=== PATIENT | female | born 1960 | race Caucasian/White ===

== ENCOUNTER → 2021-08-05 | Outpatient (CLI) | payer BC ==
--- NOTE | 2021-08-05 22:05 | CTL ---
EXAMINATION TYPE: CT Low Dose Lung DATE OF EXAM ORDERED: 08/05/2021 HISTORY: Lung cancer screening CT DLP: 101.[address] CTDI: 2.6 mGy Automated exposure control for dose reduction was used. SCREENING VISIT: Initial COMPARISON: Chest radiograph 07/12/2021, CT abdomen pelvis 06/04/2017. TECHNIQUE: Low dose computed tomography scan was performed through the chest at 1 mm thick sections a nd reconstructed images in multiple planes at 1 mm and [address] DIAGNOSTIC QUALITY: Satisfactory FINDINGS: LUNG NODULES: None. LUNGS: COPD: Severity: Minimal Fibrosis: Severity: None Lymph nodes: None Other findings: None RIGHT PLEURAL SPACE: Effusion: None Calcification: None Thickening: None Pneumothorax: None LEFT PLEURAL SPACE: Effusion: None Calcification: None Thickening: None Pneumothorax: None HEART: Heart Size: Normal Coronary Calcification: Three-vessel coronary artery atherosclerosis. Pericardial Effusion: None OTHER FINDINGS: Upper abdomen: None Bony thorax: Mild multilevel disc degeneration changes are present throughout the spine. There is no evidence for acute osseous pathology. Supraclavicular region: None Other: None IMPRESSION: No evidence for pulmonary nodules. CT LUNG RAD AND CT CHEST RECOMMENDATION: Lung-Rad 1 Negative: Continue annual screening with LDCT in 12 months. S Modifier (other clinically significant findings): S, moderate atherosclerosis of the coronary arter ies.
== END | disposition home or self-care (01) ==
LOC: RADCTMAIN 14:51
PROVIDERS: ATTEND Internal Medicine Critical Care Medicine
DX: Z12.2 Encounter for screening for malignant neoplasm of respiratory organs (principal); Z87.891 Personal history of nicotine dependence
CPT/HCPCS: 71271

== ENCOUNTER → 2021-09-08 | Outpatient (CLI) | payer BC ==
--- NOTE | 2021-09-09 01:50 | MR ---
EXAMINATION TYPE: MR cervical spine wo con DATE OF EXAM: 09/08/2021 COMPARISON: None HISTORY: Neck pain that radiates into left arm. Multiplanar multi echo imaging of the cervical spine without contrast. Cervical vertebra show mild straightening. There is some degenerative disc space narrowing at C5-6 an d C6-7. Facet joints are intact with no compression fracture. Brainstem is intact. There is no eviden ce of cervical paraspinal mass. There is a mild posterior left-sided disc bulge at C6-7 and slight ef facement of the cervical cord. There is impingement on the left side neural foramen. Cervical cord sh ows no edema. No compression fracture. Facet joints are intact. No evidence of focal bone destruction . Spinal canal measures 8.5 mm at C6-7 which is the narrowest point. IMPRESSION: There is posterior left-sided disc bulging and uncovertebral spurring at C6-7 with impingement on the neural foramen which could be clinically significant in this patient with left-sided arm pain. No ce rvical spinal stenosis.
== END | disposition home or self-care (01) ==
LOC: RADMRIMAIN 14:46
PROVIDERS: ATTEND Nurse Practitioner Family
DX: M50.123 Cervical disc disorder at C6-C7 level with radiculopathy (principal)
CPT/HCPCS: 72141

== ENCOUNTER 2022-12-10 11:53 | Emergency (ER) | payer BC ==
[2022-12-10 12:04] VITALS: RESP 18
[2022-12-10] MEDS ORDERED: SODIUM CHLORIDE 0.9% 1,000 ML IV STA (12:35)
[2022-12-10] MEDS ORDERED: KETOROLAC 15 MG/ML 1 ML VIAL IVP STA (12:35)
--- NOTE | 2022-12-10 12:37 | ED ---
Abdominal Pain HPI - General Chief Complaint: Abdominal Pain Stated Complaint: Abd pain Time Seen by Provider: 12/10/22 12:09 Source: patient Mode of arrival: ambulatory Limitations: no limitations - History of Present Illness Initial Comments: 62-year-old female with past medical history significant for colitis and IBS presents to the ED with a chief complaint of abdominal pain. Patient states 2 days ago started to feel crampy, intermittent lower abdominal pain. States since then, pain has started to become more constant and worsened in severity. States yesterday, started to experience diarrhea ongoing until today. Associated frequency and urgency however denies pain with urination or hematuria. No blood in the stool. No nausea, vomiting, denies fever. No other complaints. - Related Data Home Medications Medication Instructions Recorded Confirmed Ibuprofen [Motrin] 800 mg PO TID PRN 07/25/16 10/14/20 Lisinopril-Hctz 10-12.5 mg 1 tab PO DAILY 10/14/20 10/14/20 [Zestoretic 10-12.5] Atorvastatin Calcium [Lipitor] 10 mg PO DAILY 10/20/20 10/20/20 Previous Rx's Medication Instructions Recorded HYDROcodone/APAP 7.5-325MG [[place] 1 each PO Q6HR PRN #28 tab 10/20/20 7.5] Allergies Allergy/AdvReac Type Severity Reaction Status Date / Time No Known Allergies Allergy Verified 01/25/21 09:32 Review of Systems ROS Statement: Those systems with pertinent positive or pertinent negative responses have been documented in the HPI. ROS Other: All systems not noted in ROS Statement are negative. Past Medical History Past Medical History: Hypertension, Osteoarthritis (OA), Pneumonia Additional Past Medical History / Comment(s): Degenerative disc disease, thoracic aortic aneurysm, lung nodule being monitored, liver lesion being monitored, L lung pneumonia-had chest tube. IBS, diverticulitis History of Any Multi-Drug Resistant Organisms: None Reported Past Surgical History: Hysterectomy, Orthopedic Surgery Additional Past Surgical History / Comment(s): L LUNG thoracentesis, R carpal tunnel release, R wrist cyst removed, R elbow tendon release Past Anesthesia/Blood Transfusion Reactions: No Reported Reaction Additional Past Anesthesia/Blood Transfusion Reaction / Comment(s): Pt states she received blood as a . Past Psychological History: No Psychological Hx Reported Smoking Status: Current every day smoker Past Alcohol Use History: None Reported Past Drug Use History: None Reported - Past Family History Mother Family Medical History: Cancer, Diabetes Mellitus Additional Family Medical History / Comment(s): Mother of lung cancer at the age of 67yrs. Father History Unknown: Yes Additional Family Medical History / Comment(s): Father the patient has no contact with him. Sister(s) Additional Family Medical History / Comment(s): Stephania has 3 sisters and all have GI problems. One has been diagnosed with diverticulitis. one sister of bone cancer General Exam Limitations: no limitations General appearance: alert, in no apparent distress Eye exam: Present: normal appearance Neck exam: Present: normal inspection Respiratory exam: Present: normal lung sounds bilaterally Cardiovascular Exam: Present: regular rate, normal rhythm GI/Abdominal exam: Present: soft, tenderness (Tenderness to palpation of the left lower quadrant and suprapubic region. No rebound guarding or rigidity.) Extremities exam: Present: normal inspection Neurological exam: Present: alert, oriented X3 Skin exam: Present: warm, dry Course Vital Signs 12/10/22 12:00 Temperature 97.7 F Pulse Rate 95 Respiratory 18 Rate Blood Pressure 120/84 O2 Sat by Pulse 99 Oximetry Medical Decision Making - Medical Decision Making Was pt. sent in by a medical professional or institution (, PA, LOOSE [employer] P[employer]ER, urgent care, hospital, or halfway...) When possible be specific @ -No Did you speak to anyone other than the patient for history (EMS, parent, family, police, friend...)? What history was obtained from this source @ -No Did you review nursing and triage notes (agree or disagree)? Why? @ -I reviewed and agree with nursing and triage notes Were old charts reviewed (outside hosp., previous admission, EMS record, old EKG, old radiological studies, urgent care reports/EKG's, halfway records)? Report findings @ -No old charts were reviewed Differential Diagnosis (chest pain, altered mental status, abdominal pain women, abdominal pain men, vaginal bleeding, weakness, fever, dyspnea, syncope, headache, dizziness, GI bleed, back pain, seizure, CVA, palpatations, mental health, musculoskeletal)? @ -Differential Abdominal Pain Women: Appendicitis, Cholecystitis, diverticulosis, ischemic bowel, pancreatitis, hepatitis, UTI, gastroenteritis, AAA, incarcerated hernia, bowel obstruction, constipation, inflammatory bowel, hepatitis, peptic ulcer disease, splenic infarction, perforated viscus, vulvitis, ovarian torsion, PID, kidney stone, placenta abruption, this is not meant to be an all-inclusive list EKG interpreted by me (3pts min.). @ -As above X-rays interpreted by me (1pt min.). @ -None done CT interpreted by me (1pt min.). @ -CT abdomen and pelvis showed colitis/diverticulitis of the sigmoid colon without evidence of fluid collection or free air. U/S interpreted by me (1pt. min.). @ -None done What testing was considered but not performed or refused? (CT, X-rays, U/S, labs)? Why? @ -None What meds were considered but not given or refused? Why? @ -None Did you discuss the management of the patient with other professionals (professionals i.e. , PA, LOOSE [employer] P[employer]ER, lab, RT, psych nurse, healthcare social worker, pottery decoration designer, teacher, preventive medicine officer, classification case manager)? Give summary @ -No Was smoking cessation discussed for >3mins.? @ -No Was critical care preformed (if so, how long)? @ -No Were there social determinants of health that impacted care today? How? ( Homelessness, low income, unemployed, alcoholism, drug addiction, transportation, low edu. Level, literacy, decrease access to med. care, shelter, rehab)? @ -No Was there de-escalation of care discussed even if they declined (Discuss DNR or withdrawal of care, Hospice)? DNR status @ -No What co-morbidities impacted this encounter? (DM, HTN, Smoking, COPD, CAD, Cancer, CVA, ARF, Chemo, Hep., AIDS, mental health diagnosis, sleep apnea, morbid obesity)? @ -IBS Was patient admitted / discharged? Hospital course, mention meds given and route, prescriptions, significant lab abnormalities, going to OR and other pertinent info. @ -Discharged. Laboratory studies significant for an elevated white count at 13.6. , Laboratory studies unremarkable. CT of the abdomen pelvis shows evidence of diverticulitis/colitis however no free air or fluid collection. At this time, patient is in stable condition. Vital signs stable, afebrile. At this time patient would rather outpatient therapy for her diverticulitis/colitis. Patient discharged home in stable condition. Discussed return precautions with patient who verbalizes agreement. Undiagnosed new problem with uncertain prognosis? @ -No Drug Therapy requiring intensive monitoring for toxicity (Heparin, Nitro, Insulin, Cardizem)? @ -No Were any procedures done? @ -No Diagnosis/symptom? @ -Diverticulitis/Colitis Acute, or Chronic, or Acute on Chronic? @ -Acute Uncomplicated (without systemic symptoms) or Complicated (systemic symptoms)? @ -Uncomplicated Side effects of treatment? @ -No Exacerbation, Progression, or Severe Exacerbation? @ -No Poses a threat to life or bodily function? How? (Chest pain, [place], [place], pneumonia, PE, COPD, DKA, ARF, appy, cholecystitis, CVA, Diverticulitis, Homicidal, Suicidal, threat to staff... and all critical care pts) @ -No - Lab Data Result diagrams: 12/10/22 12:55 12/10/22 12:55 Lab Results 12/10/22 12/10/22 12/10/22 Range/Units 12:55 12:55 12:55 WBC 13.6 H (3.8-10.6) k/uL RBC 5.29 (3.80-5.40) m/uL Hgb 15.0 (11.4-16.0) gm/dL Hct 45.0 (34.0-46.0) % MCV 85.1 (80.0-100.0) fL MCH 28.3 (25.0-35.0) pg MCHC 33.3 (31.0-37.0) g/dL RDW 13.4 (11.5-15.5) % Plt Count 215 (150-450) k/uL MPV 7.8 Neutrophils % 76 % Lymphocytes % 18 % Monocytes % 4 % Eosinophils % 1 % Basophils % 0 % Neutrophils # 10.3 H (1.3-7.7) k/uL Lymphocytes # 2.4 (1.0-4.8) k/uL Monocytes # 0.6 (0-1.0) k/uL Eosinophils # 0.2 (0-0.7) k/uL Basophils # 0.0 (0-0.2) k/uL Sodium (137-145) mmol/L Potassium (3.5-5.1) mmol/L Chloride (98-107) mmol/L Carbon Dioxide (22-30) mmol/L Anion Gap mmol/L BUN (7-17) mg/dL Creatinine (0.52-1.04) mg/dL Est GFR (CKD-EPI)AfAm (>60 ml/min/1.73 sqM) Est GFR (CKD-EPI)NonAf (>60 ml/min/1.73 sqM) Glucose (74-99) mg/dL Plasma Lactic Acid Fareed (0.7-2.0) mmol/L Calcium (8.4-10.2) mg/dL Total Bilirubin (0.2-1.3) mg/dL AST (14-36) U/L ALT (4-34) U/L Alkaline Phosphatase (38-126) U/L Troponin I (0.000-0.034) ng/mL Total Protein (6.3-8.2) g/dL Albumin (3.5-5.0) g/dL Amylase (30-110) U/L Lipase (23-300) U/L Urine Color Yellow Urine Appearance Clear (Clear) Urine pH 6.0 (5.0-8.0) Ur Specific [place] 1.030 (1.001-1.035) Urine Protein Negative (Negative) Urine Glucose (UA) Negative (Negative) Urine Ketones Negative (Negative) Urine Blood Trace H (Negative) Urine Nitrite Negative (Negative) Urine Bilirubin Negative (Negative) Urine Urobilinogen <2.0 (<2.0) mg/dL Ur Leukocyte Esterase Negative (Negative) Urine RBC 1 (0-5) /hpf Urine WBC 1 (0-5) /hpf Ur Squamous Epith Cells 2 (0-4) /hpf Urine Mucus Rare H (None) /hpf Urine HCG, Qual Not Detected (Not Detectd) 12/10/22 12/10/22 12/10/22 Range/Units 12:55 12:55 12:55 WBC (3.8-10.6) k/uL RBC (3.80-5.40) m/uL Hgb (11.4-16.0) gm/dL Hct (34.0-46.0) % MCV (80.0-100.0) fL MCH (25.0-35.0) pg MCHC (31.0-37.0) g/dL RDW (11.5-15.5) % Plt Count (150-450) k/uL MPV Neutrophils % % Lymphocytes % % Monocytes % % Eosinophils % % Basophils % % Neutrophils # (1.3-7.7) k/uL Lymphocytes # (1.0-4.8) k/uL Monocytes # (0-1.0) k/uL Eosinophils # (0-0.7) k/uL Basophils # (0-0.2) k/uL Sodium 136 L (137-145) mmol/L Potassium 4.4 (3.5-5.1) mmol/L Chloride 100 (98-107) mmol/L Carbon Dioxide 27 (22-30) mmol/L Anion Gap 9 mmol/L BUN 15 (7-17) mg/dL Creatinine 0.42 L (0.52-1.04) mg/dL Est GFR (CKD-EPI)AfAm >90 (>60 ml/min/1.73 sqM) Est GFR (CKD-EPI)NonAf >90 (>60 ml/min/1.73 sqM) Glucose 89 (74-99) mg/dL Plasma Lactic Acid Fareed 1.1 (0.7-2.0) mmol/L Calcium 9.0 (8.4-10.2) mg/dL Total Bilirubin 1.2 (0.2-1.3) mg/dL AST 29 (14-36) U/L ALT 18 (4-34) U/L Alkaline Phosphatase 79 (38-126) U/L Troponin I <0.012 (0.000-0.034) ng/mL Total Protein 7.6 (6.3-8.2) g/dL Albumin 4.2 (3.5-5.0) g/dL Amylase 59 (30-110) U/L Lipase 75 (23-300) U/L Urine Color Urine Appearance (Clear) Urine pH (5.0-8.0) Ur Specific [place] (1.001-1.035) Urine Protein (Negative) Urine Glucose (UA) (Negative) Urine Ketones (Negative) Urine Blood (Negative) Urine Nitrite (Negative) Urine Bilirubin (Negative) Urine Urobilinogen (<2.0) mg/dL Ur Leukocyte Esterase (Negative) Urine RBC (0-5) /hpf Urine WBC (0-5) /hpf Ur Squamous Epith Cells (0-4) /hpf Urine Mucus (None) /hpf Urine HCG, Qual (Not Detectd) Disposition Clinical Impression: Diverticulitis, Colitis Disposition: HOME SELF-CARE Condition: Good Instructions (If sedation given, give patient instructions): Diverticulitis (E D), Colitis (ED) Additional Instructions: Please return to the Emergency Department if symptoms worsen or any other concerns. Is patient prescribed a controlled substance at d/c from ED?: No Referrals: Hetal Whitlock MD [Primary Care Provider] - 1-2 days Time of Disposition: 14:40
--- NOTE | 2022-12-10 13:16 | CT ---
EXAMINATION TYPE: CT abdomen pelvis w con CT DLP: 1623.8 mGycm, Automated exposure control for dose reduction was used. DATE OF EXAM: 12/10/2022 1:06 PM COMPARISON: CT abdomen pelvis most recent from CLINICAL INDICATION:Female, 62 years old with history of hx colitis, LLQ and suprapubic pain; LLQ abd ominal and suprapubic pain. TECHNIQUE: Axial CT of the abdomen and pelvis. Sagittal and coronal reformats were created on a [employer] workstation. Contrast used:100ml mL of Isovue 300 with IV Contrast, (none if empty) Oral contrast used: without Oral Contrast (none if empty) FINDINGS: LOWER CHEST: Unremarkable ABDOMEN LIVER: Scattered probable hepatic cysts. GALLBLADDER AND BILE DUCTS: Unremarkable. PANCREAS: Unremarkable. SPLEEN: Unremarkable. ADRENAL GLANDS: Unremarkable. KIDNEYS AND URETERS: Right renal cyst. No evidence of hydronephrosis or renal calculus. The ureters a re unremarkable. PELVIS BLADDER: Unremarkable REPRODUCTIVE: Unremarkable. ABDOMEN & PELVIS STOMACH AND BOWEL: Fat stranding changes around the sigmoid colon with multiple diverticula. No free air or organizing fluid collections. There is a large stool burden throughout the colon. PERITONEUM/RETROPERITONEUM: No evidence of pneumoperitoneum or free fluid. VASCULATURE: No evidence of aortic aneurysm. MUSCULOSKELETAL: No acute osseous abnormalities. Moderate disc degeneration changes are present throu ghout the thoracolumbar spine. There is transitional vertebrae present. LYMPH NODES: No gross evidence for lymphadenopathy. SOFT TISSUE/ABDOMINAL WALL: fat-containing umbilical hernia. IMPRESSION: 1. Colitis/diverticulitis of the sigmoid colon. No evidence of free air or organizing fluid collecti on. 2. Moderate multilevel degeneration changes of the spine.
[2022-12-10 13:38] LABS: Basophils % (A) 0 %; Eosinophils # (A) 0.2 k/uL (0-0.7); Eosinophils % (A) 1 %; Lymphocytes # (A) 2.4 k/uL (1.0-4.8); Lymphocytes % (A) 18 %; MCH 28.3 pg (25.0-35.0); MCHC 33.3 g/dL (31.0-37.0); MCV 85.1 fL (80.0-100.0); Mean Platelet Volume 7.8; Monocytes # (A) 0.6 k/uL (0-1.0); Monocytes % (A) 4 %; Neutrophils # (A) 10.3 k/uL (1.3-7.7); Neutrophils % (A) 76 %; Platelet Count 215 k/uL (150-450); RBC 5.29 m/uL (3.80-5.40); RDW 13.4 % (11.5-15.5); WBC 13.6 k/uL (3.8-10.6)
[2022-12-10 13:40] LABS: Appearance,Urine Clear (Clear); Bilirubin,Urine Negative (Negative); Blood,Urine Trace (Negative); Color,Urine Yellow; Glucose,Urine (UA) Negative (Negative); Ketones,Urine Negative (Negative); Leukocyte Esterase,Urine Negative (Negative); Mucus,Urine Rare /hpf; Nitrite,Urine Negative (Negative); Protein,Urine Negative (Negative); RBC,Urine 1 /hpf (0-5); Squamous Epithelial Cell,Urine 2 /hpf (0-4); Urobilinogen,Urine <2.0 mg/dL (<2.0); WBC,Urine 1 /hpf (0-5)
[2022-12-10 13:52] LABS: ALT 18 U/L (4-34); AST 29 U/L (14-36); African American GFR (CKD) >90 (>60 ml/min/1.73 sqM); Albumin 4.2 g/dL (3.5-5.0); Alkaline Phosphatase 79 U/L (38-126); Amylase 59 U/L (30-110); Anion Gap 9 mmol/L; Blood Urea Nitrogen 15 mg/dL (7-17); Carbon Dioxide 27 mmol/L (22-30); Chloride 100 mmol/L (98-107); Glucose 89 mg/dL (74-99); Lipase 75 U/L (23-300); Non-African American GFR(CKD) >90 (>60 ml/min/1.73 sqM); Potassium 4.4 mmol/L (3.5-5.1); Sodium 136 mmol/L (137-145); Total Bilirubin 1.2 mg/dL (0.2-1.3); Total Protein 7.6 g/dL (6.3-8.2)
[2022-12-10] MEDS ORDERED: ONDANSETRON 4 MG ODT STARTER PACK 2 TAB BTL PO STA (14:43)
[2022-12-10] MEDS ORDERED: ACET/COD 300 MG/30 MG STARTER PACK 6 TAB BTL PO STA (14:43)
[2022-12-10] MEDS ORDERED: AMOXIC-POT CLAV 875MG STARTER PACK 2 TAB BTL PO STA (14:43)
[2022-12-10] MEDS ORDERED: IBUPROFEN 600 MG STARTER PACK 4 TAB BTL PO STA (14:43)
[2022-12-10] MEDS ORDERED: MORPHINE SULFATE 2 MG/ML SYRINGE IVP ONE (14:43)
[2022-12-10 14:56] VITALS: BP 122/82; PULSE 84; TEMP 98
== END 2022-12-10 14:59 | disposition home or self-care (01) ==
LOC: EC 11:53
DX: K57.32 Diverticulitis of large intestine without perforation or abscess without bleeding (principal); K52.9 Noninfective gastroenteritis and colitis, unspecified; I10 Essential (primary) hypertension; M19.90 Unspecified osteoarthritis, unspecified site; F17.200 Nicotine dependence, unspecified, uncomplicated; Z79.1 Long term (current) use of non-steroidal anti-inflammatories (NSAID); Z79.899 Other long term (current) drug therapy
CPT/HCPCS: 36415; 80053; 82150; 83605; 83690; 84484; 85025; 81001; 81025; 74177; 99284; 96374; 96375; 96361; J2270; J1885; S0119; Q9967

== ENCOUNTER 2023-02-02 13:22 | Emergency (ER) | payer BC ==
--- NOTE | 2023-02-02 13:40 | ED ---
Extremity Problem HPI - General Source: patient, RN notes reviewed Mode of arrival: ambulatory Limitations: no limitations - History of Present Illness MD Complaint: extremity pain <Hayde Marcial - Last Filed: 02/02/23 13:40> <Verónica Paz - Last Filed: 02/02/23 18:15> - General Chief complaint: Extremity Problem,Nontraumatic Stated complaint: swelling in legs Time Seen by Provider: 02/02/23 13:37 - History of Present Illness Initial comments: This is a 62 year old female who presents to the emergency department for left leg pain and swelling. Denies any injuries. States that her toes are tingling. Pain started behind the knee cap and is now going up and down the leg. (Hayde Marcial) 62-year-old female presents emergency Department with chief complaint of left leg pain 3 days. She states that she has noticed some swelling in her right knee for the past 2-3 weeks but did not have any pain until 3 days ago. She states that she has been taking Tylenol and Motrin for pain which is slightly helpful. She reports the pain is in her posterior left leg behind the knee and causes a shooting pain that radiates down to her toes. She reports that she is able to ambulate but it is painful. She denies any redness or warmth to the area. Denies fever, chills. (Verónica Paz) - Related Data Home Medications Medication Instructions Recorded Confirmed Lisinopril-Hctz 10-12.5 mg 1 tab PO DAILY 10/14/20 02/02/23 [Zestoretic 10-12.5] Atorvastatin Calcium [Lipitor] 10 mg PO DAILY 10/20/20 02/02/23 Aspirin EC [Ecotrin Low Dose] 81 mg PO HS 02/02/23 02/02/23 Azithromycin [Zithromax Z Pack] See Taper PO DIRECTED 02/02/23 02/02/23 Cholecalciferol [Vitamin D3 (25 50 mcg PO DAILY 02/02/23 02/02/23 Mcg = 1000 Iu)] predniSONE See Taper PO DIRECTED 02/02/23 02/02/23 Previous Rx's Medication Instructions Recorded Ibuprofen [Motrin] 600 mg PO Q8HR PRN #30 tab 12/10/22 Allergies Allergy/AdvReac Type Severity Reaction Status Date / Time No Known Allergies Allergy Verified 02/02/23 17:44 Review of Systems ROS Other: All systems not noted in ROS Statement are negative. <Hayde Marcial - Last Filed: 02/02/23 13:40> ROS Other: All systems not noted in ROS Statement are negative. <Verónica Paz - Last Filed: 02/02/23 18:15> ROS Statement: Those systems with pertinent positive or pertinent negative responses have been documented in the HPI. Past Medical History Past Medical History: Hypertension, Osteoarthritis (OA), Pneumonia Additional Past Medical History / Comment(s): Degenerative disc disease, thoracic aortic aneurysm, lung nodule being monitored, liver lesion being monitored, L lung pneumonia-had chest tube. IBS, diverticulitis History of Any Multi-Drug Resistant Organisms: None Reported Past Surgical History: Hysterectomy, Orthopedic Surgery Additional Past Surgical History / Comment(s): L LUNG thoracentesis, R carpal tunnel release, R wrist cyst removed, R elbow tendon release Past Anesthesia/Blood Transfusion Reactions: No Reported Reaction Additional Past Anesthesia/Blood Transfusion Reaction / Comment(s): Pt states she received blood as a . Past Psychological History: No Psychological Hx Reported Smoking Status: Current every day smoker Past Alcohol Use History: None Reported Past Drug Use History: None Reported - Past Family History Mother Family Medical History: Cancer, Diabetes Mellitus Additional Family Medical History / Comment(s): Mother of lung cancer at the age of 67yrs. Father History Unknown: Yes Additional Family Medical History / Comment(s): Father the patient has no contact with him. Sister(s) Additional Family Medical History / Comment(s): has 3 sisters and all have GI problems. One has been diagnosed with diverticulitis. one sister of bone cancer <Hayde Marcial - Last Filed: 02/02/23 13:40> General Exam <Hayde Marcial - Last Filed: 02/02/23 13:40> Limitations: no limitations General appearance: alert, in no apparent distress Head exam: Present: atraumatic, normocephalic, normal inspection Eye exam: Present: normal appearance Neck exam: Present: normal inspection. Absent: tenderness, meningismus, lymphadenopathy Respiratory exam: Present: normal lung sounds bilaterally. Absent: respiratory distress, wheezes, rales, rhonchi, stridor Cardiovascular Exam: Present: regular rate, normal rhythm, normal heart sounds. Absent: systolic murmur, diastolic murmur, rubs, gallop, clicks Extremities exam: Present: normal inspection, full ROM, tenderness (posteromedi al left knee pain), normal capillary refill, other (DP and PT pulses 2+, posterior medial left knee swelling, non erythematous). Absent: pedal edema, joint swelling, calf tenderness Neurological exam: Present: alert, oriented X3 Psychiatric exam: Present: normal affect, normal mood Skin exam: Present: warm, dry, intact, normal color. Absent: rash <Verónica Paz - Last Filed: 02/02/23 18:15> - General Exam Comments Initial Comments: Visual Physical Exam Vital signs reviewed General: Well-appearing, nontoxic, no acute distress. Head: Normocephalic, atraumatic Eyes: PERRLA, EOMI ENT: Airway patent Chest: Nonlabored breathing Skin: No visual rash, normal skin tone Neuro: Alert and oriented 3 Musculoskeletal: No gross abnormalities I performed the QuickNote portion of this chart. Signed Hayde Marcial PA-C. (Hayde Marcial) Course Vital Signs 02/02/23 02/02/23 13:38 17:39 Temperature 97.5 F L 97.8 F Pulse Rate 82 75 Respiratory 16 16 Rate Blood Pressure 126/81 122/79 O2 Sat by Pulse 98 98 Oximetry Medical Decision Making <Verónica Paz - Last Filed: 02/02/23 18:15> - Medical Decision Making Was pt. sent in by a medical professional or institution ([facility], [facility], urgent care, hospital, or longterm...) When possible be specific @ -No Did you speak to anyone other than the patient for history (EMS, parent, family, police, friend...)? What history was obtained from this source @ -No Did you review nursing and triage notes (agree or disagree)? Why? @ -I reviewed and agree with nursing and triage notes Were old charts reviewed (outside hosp., previous admission, EMS record, old EKG, old radiological studies, urgent care reports/EKG's, longterm records)? Report findings @ -No old charts were reviewed Differential Diagnosis (chest pain, altered mental status, abdominal pain women, abdominal pain men, vaginal bleeding, weakness, fever, dyspnea, syncope, headache, dizziness, GI bleed, back pain, seizure, CVA, palpatations, mental health, musculoskeletal)? @ -Differential Musculoskeletal Muscular strain, contusion, ligament sprain, fracture, arthritis, septic arthri tis, bursitis, cellulitis, muscle spasm, nerve compression, DVT, arterial occlusion, herpes zoster, electrolyte abnormality, tumor.... This is not meant to be in all inclusive list EKG interpreted by me (3pts min.). @ -none X-rays interpreted by me (1pt min.). @ -None done CT interpreted by me (1pt min.). @ -None done U/S interpreted by me (1pt. min.). @ -US left leg shows no evidence of DVT, complex popliteal fossa/ Coon's cyst What testing was considered but not performed or refused? (CT, X-rays, U/S, labs)? Why? @ -None What meds were considered but not given or refused? Why? @ -None Did you discuss the management of the patient with other professionals (professionals i.e. , PA, SH[employer], lab, RT, psych nurse, pediatric social worker, automatic drill operator, teacher, police patrol officer, keycase assembler)? Give summary @ -No Was smoking cessation discussed for >3mins.? @ -No Was critical care preformed (if so, how long)? @ -No Were there social determinants of health that impacted care today? How? (Homelessness, low income, unemployed, alcoholism, drug addiction, transportation, low edu. Level, literacy, decrease access to med. care, fpc, rehab)? @ -No Was there de-escalation of care discussed even if they declined (Discuss DNR or withdrawal of care, Hospice)? DNR status @ -No What co-morbidities impacted this encounter? (DM, HTN, Smoking, COPD, CAD, Cancer, CVA, ARF, Chemo, Hep., AIDS, mental health diagnosis, sleep apnea, morbid obesity)? @ -None Was patient admitted / discharged? Hospital course, mention meds given and route, prescriptions, significant lab abnormalities, going to OR and other pertinent info. @ -discharged. Patient presented to the emergency department for chief complaint of left lower leg and knee pain 3 days. She noticed swelling 2 to 3 weeks ago. She reports good range of motion to the left knee but it is painful with ambulation. She denies any trauma. Ultrasound was obtained which shows no evidence for DVT, complex popliteal fossa/Coon's cyst. Patient was advised on these findings and an Donnell wrap was applied to the patient's deep. Advised to apply compression, rest and follow-up with her primary care provider. Patient stable at time of discharge. Case discussed with Dr. Hernández.. Undiagnosed new problem with uncertain prognosis? @ -No Drug Therapy requiring intensive monitoring for toxicity (Heparin, Nitro, Insulin, Cardizem)? @ -No Were any procedures done? @ -No Diagnosis/symptom? @ -Coon cyst Acute, or Chronic, or Acute on Chronic? @ -acute Uncomplicated (without systemic symptoms) or Complicated (systemic symptoms)? @ -uncomplicated Side effects of treatment? @ -No Exacerbation, Progression, or Severe Exacerbation? @ -No Poses a threat to life or bodily function? How? (Chest pain, USA, CT, pneumonia, PE, COPD, DKA, ARF, appy, cholecystitis, CVA, Diverticulitis, Homicidal, Suicidal, threat to staff... and all critical care pts) @ -No (Verónica Paz) Disposition <Hayde Marcial - Last Filed: 02/02/23 13:40> Is patient prescribed a controlled substance at d/c from ED?: No <Verónica Paz - Last Filed: 02/02/23 18:15> Clinical Impression: Bakers cyst Disposition: HOME SELF-CARE Condition: Stable Instructions (If sedation given, give patient instructions): Coon Cyst (ED) Additional Instructions: Apply compression to knee. Follow up with orthopedics if you do not see improvement in symptoms in the next 1-2 weeks. Alternate Tylenol and Motrin as needed for pain. Return to the emergency department for new or worsening symptoms. Referrals: None,Stated [REFERRING] - 1-2 days
[2023-02-02 13:46] VITALS: RESP 16
--- NOTE | 2023-02-02 14:29 | US ---
EXAMINATION TYPE: US venous doppler duplex LE LT DATE OF EXAM: 02/02/2023 2:11 PM COMPARISON: NONE CLINICAL INDICATION: Female, 62 years old with history of Pain and swelling; SIDE PERFORMED: TECHNIQUE: The lower extremity deep venous system is examined utilizing real time linear array sonog emmanuelle with graded compression, doppler sonography and color-flow sonography. VESSELS IMAGED: Common Femoral Vein Deep Femoral Vein Greater Saphenous Vein * Femoral Vein Popliteal Vein Small Saphenous Vein * Proximal Calf Veins (* superficial vessels) Left Leg: Negative for DVT complex fluid collection = 3.5 x 2.8 x 0.6cm at medial pop fossa at are a of patients pain IMPRESSION: 1. No diagnostic evidence of DVT. 2. Complex fluid collection in the posterior fossa may represent a complicated popliteal fossa\Coon cyst. Follow-up MRI can be obtained.
[2023-02-02 17:43] VITALS: BP 122/79; PULSE 75; TEMP 97.8
== END 2023-02-02 17:39 | disposition home or self-care (01) ==
LOC: EC 13:22
DX: M71.22 Synovial cyst of popliteal space [Baker], left knee (principal); I10 Essential (primary) hypertension; M19.90 Unspecified osteoarthritis, unspecified site; F17.200 Nicotine dependence, unspecified, uncomplicated; Z79.82 Long term (current) use of aspirin; Z79.899 Other long term (current) drug therapy
CPT/HCPCS: 99283

== ENCOUNTER 2023-03-03 10:43 | Day surgery (SDC) | payer BC ==
[~2023-03-03 10:43] MED LIST: LACTATED RINGERS 1,000 ML IV SCH
[2023-03-03 11:16] LABS: Glucose,Whole Blood 95 mg/dL (70-110)
[2023-03-03 11:17] VITALS: RESP 16; TEMP 97.8
[2023-03-03] MEDS ORDERED: PROPOFOL 10 MG/ML 20 ML VIAL IV ONE (11:36)
[2023-03-03] MEDS ORDERED: LIDOCAINE 1% INJ 10MG/ML (20 ML MDV) ONE (11:36)
--- NOTE | 2023-03-03 11:56 | P.PCN ---
Date of Procedure: 03/03/23 Procedure(s) Performed: BRIEF HISTORY: Patient is a 62-year-old pleasant female scheduled for an elective colonoscopy as a part of evaluation of intermittent lower abdominal pain and diarrhea for the last few months duration. PROCEDURE PERFORMED: Colonoscopy with biopsy. PREOPERATIVE DIAGNOSIS: Intermittent lower abdominal pain and diarrhea. IV sedation per Anesthesia. PROCEDURE: After informed consent was obtained, the patient, was brought into the endoscopy unit. IV sedation was administered by Anesthesia under continuous monitoring. Digital rectal examination was normal. Initially the Olympus CF-160 flexible video colonoscope was then inserted in the rectum, gradually advanced into the cecum without any difficulty. Careful examination was performed as the scope was gradually being withdrawn. Ileocecal valve and the appendiceal orifice were visualized and appeared normal. Prep was excellent. Mucosa of the cecum, ascending colon, transverse colon, descending colon, normal. In the sigmoid colon there was a 5 polyp that was removed by cold biopsy. Scattered sigmoid diverticula seen. Rest of the sigmoid colon, and rectum appeared normal. Retroflexion was performed in the rectum and no lesions were seen. The patient tolerated the procedure well. IMPRESSION: 5 mm; sigmoid polyp status post cold biopsy Scattered sigmoid diverticulosis RECOMMENDATIONS: Findings of this examination were discussed with the patient as well as a family. She was advised to follow with the biopsy results and if the biopsy reveals adenoma repeat colonoscopy in 5 years. In the meantime she was advised to be a high-fiber diet and take supplements a regular basis.
[2023-03-03 12:30] VITALS: BP 127/78; PULSE 57
== END 2023-03-03 12:30 | disposition home or self-care (01) ==
LOC: ORWHC2ENDO 10:43
PROVIDERS: ATTEND Internal Medicine Gastroenterology
DX: D12.5 Benign neoplasm of sigmoid colon (principal); K57.30 Diverticulosis of large intestine without perforation or abscess without bleeding; I10 Essential (primary) hypertension; E78.5 Hyperlipidemia, unspecified; E11.9 Type 2 diabetes mellitus without complications; F17.210 Nicotine dependence, cigarettes, uncomplicated; Z79.82 Long term (current) use of aspirin; Z90.710 Acquired absence of both cervix and uterus; Z98.49 Cataract extraction status, unspecified eye; Z79.02 Long term (current) use of antithrombotics/antiplatelets; Z79.811 Long term (current) use of aromatase inhibitors; Z79.899 Other long term (current) drug therapy
CPT/HCPCS: 88305; 45380; J2001; J2704

== ENCOUNTER → 2023-04-08 | Outpatient (CLI) | payer BC ==
--- NOTE | 2023-04-08 17:11 | MR ---
EXAMINATION TYPE: MR knee LT wo con DATE OF EXAM: 04/08/2023 COMPARISON: None HISTORY: Left knee pain S/P fall. TECHNIQUE: Multiplanar, multisequence imaging of the left knee is performed without IV contrast. FINDINGS: There is no bone contusion or fracture. There is a small joint effusion.. There is a tiny Coon's cys t. There is a subchondral cysts in the mid tibial plateau. There is thickening of the proximal attachments of both the lateral collateral ligament and popliteus tendon indicating partial tearing. There is a complex tear posterior horn, body and anterior horn of the lateral meniscus. The cruciate ligaments are intact. There is degenerative signal within the medial meniscus but no dis crete tear. Patellar tendon and quadriceps tendon are intact. There is marked osteoarthritic change of patellofemoral compartment where there is marked narrowing o f the joint space and marked thinning of the articular cartilage. There are small subchondral cysts i n the lateral patellar facet. There are mild osteoarthritic changes of the medial lateral compartment s. IMPRESSION: 1. Small joint effusion. Small Coon's cyst. 2. Partial tearing of the proximal lateral collateral ligament and popliteus tendon attachment. 3. large tear of the posterior, body and anterior horn of the lateral meniscus. 4. Marked osteoarthritic change of patellofemoral compartment. Mild degenerative change of the medial lateral compartments.
== END | disposition home or self-care (01) ==
LOC: RADMRIMAIN 07:28
PROVIDERS: ATTEND Orthopaedic Surgery
DX: M17.12 Unilateral primary osteoarthritis, left knee (principal); M71.22 Synovial cyst of popliteal space [Baker], left knee; M23.352 Other meniscus derangements, posterior horn of lateral meniscus, left knee; M23.342 Other meniscus derangements, anterior horn of lateral meniscus, left knee; M25.462 Effusion, left knee; M23.642 Other spontaneous disruption of lateral collateral ligament of left knee; M67.864 Other specified disorders of tendon, left knee

== ENCOUNTER → 2023-07-31 | Outpatient (CLI) | payer BC ==
--- NOTE | 2023-08-01 10:55 | CTL ---
EXAMINATION TYPE: CT Low Dose Lung DATE OF EXAM ORDERED: 07/31/2023 HISTORY: . Lung cancer screening CT DLP: 94.[address] CTDI: 2.4 mGy Automated exposure control for dose reduction was used. SCREENING VISIT: Subsequent COMPARISON: 08/05/2021 TECHNIQUE: Low dose computed tomography scan was performed through the chest at 1 mm thick sections a nd reconstructed images in the coronal plane at [address] DIAGNOSTIC QUALITY: Satisfactory FINDINGS: LUNG NODULES: None. LUNGS: COPD: Severity: None Fibrosis: Severity: None Lymph nodes: No enlarged mediastinal or hilar adenopathy. Other findings: None RIGHT PLEURAL SPACE: Effusion: None Calcification: None Thickening: None Pneumothorax: None LEFT PLEURAL SPACE: Effusion: None Calcification: None Thickening: None Pneumothorax: None HEART: Heart Size: Normal Coronary calcification: Moderate Pericardial effusion: None OTHER FINDINGS: Upper abdomen: No Bony thorax: Normal Supraclavicular region: Normal Other: Ascending thoracic aorta at the level the main pulmonary artery measures 4.2 cm. The main pul monary artery at the bifurcation measures 2.6 cm. IMPRESSION: No suspicious change suggestive primary or metastatic neoplasm FOLLOW UP CT CHEST RECOMMENDATION: Follow-up low-dose CT chest one year CT LUNG RAD: Lung-Rad 2 Benign Appearance or Behavior
== END | disposition home or self-care (01) ==
LOC: RADCTMAIN 14:53
PROVIDERS: ATTEND Internal Medicine Critical Care Medicine
DX: Z12.2 Encounter for screening for malignant neoplasm of respiratory organs (principal); F17.210 Nicotine dependence, cigarettes, uncomplicated
CPT/HCPCS: 71271

== ENCOUNTER → 2024-01-11 | Outpatient (CLI) | payer BC ==
[2024-01-11 15:35] LABS: Basophils # (A) 0.05 X 10*3/uL (0.00-0.10); Basophils % (A) 0.6 %; Eosinophils # (A) 0.14 X 10*3/uL (0.04-0.35); Eosinophils % (A) 1.8 %; HGB 13.6 g/dL (12.0-15.0); Lymphocytes # (A) 2.54 X 10*3/uL (0.90-5.00); Lymphocytes % (A) 32.7 %; MCH 27.7 pg (27.0-32.0); MCHC 33.2 g/dL (32.0-37.0); MCV 83.5 FL (80.0-97.0); Mean Platelet Volume 10.9 FL (9.5-12.2); Monocytes # (A) 0.37 X 10*3/uL (0.20-1.00); Monocytes % (A) 4.8 %; NRBC Per 100 WBC 0 X 10*3/uL (0.00-0.01); Neutrophils # (A) 4.65 X 10*3/uL (1.80-7.70); Neutrophils % (A) 59.8 %; Platelet Count 306 X 10*3/uL (140-440); RBC 4.91 X 10*6/uL (4.10-5.20); RDW 13.5 % (11.5-14.5); WBC 7.77 X 10*3/uL (4.50-10.00)
[2024-01-11 15:39] LABS: Blood Urea Nitrogen 12.3 mg/dL (9.0-27.0); Calcium 9.4 mg/dL (8.7-10.3); Carbon Dioxide 23.6 mmol/L (21.6-31.8); Chloride 98 mmol/L (96-109); Glucose 120 mg/dL (70-110); Potassium 3.5 mmol/L (3.5-5.5); Sodium 135 mmol/L (135-145)
== END | disposition home or self-care (01) ==
LOC: LABPAT 10:48
PROVIDERS: ATTEND Orthopaedic Surgery
DX: Z01.818 Encounter for other preprocedural examination
CPT/HCPCS: 80048; 85025; 93005

== ENCOUNTER 2024-02-09 08:12 | Day surgery (SDC) | payer BC ==
--- NOTE | 2024-02-08 09:06 | P.HPOR ---
History of Present Illness H&P Date: 02/08/24 Chief Complaint: Left knee pain Patient is a 63-year-old female who presents with left knee pain for the past 8 months. She is having diffuse medial and lateral pain with weightbearing activities. She notes stiffness and swelling. She had pain at night. She has intermittent giving way. She tried medications in addition to an injection with partial temporary relief. She notes daily pain that limits her. Review of Systems Per HPI Past Medical History Past Medical History: Hypertension, Osteoarthritis (OA), Pneumonia Additional Past Medical History / Comment(s): Degenerative disc disease, thoracic aortic aneurysm, lung nodule being monitored, liver lesion being monitored, L lung pneumonia-had chest tube. IBS, diverticulitis History of Any Multi-Drug Resistant Organisms: None Reported Past Surgical History: Hysterectomy, Orthopedic Surgery Additional Past Surgical History / Comment(s): L LUNG thoracentesis, R carpal tunnel release, R wrist cyst removed, R elbow tendon release Past Anesthesia/Blood Transfusion Reactions: No Reported Reaction Additional Past Anesthesia/Blood Transfusion Reaction / Comment(s): Pt states she received blood as a . Additional Psychological History / Comment(s): Pt resides with her spouse. She is independent. Additional Past Alcohol Use History / Comment(s): Pt started smoking as a teen and quit 5 months ago. Past Drug Use History: None Reported - Past Family History Mother Family Medical History: Cancer, Diabetes Mellitus Additional Family Medical History / Comment(s): Mother of lung cancer at the age of 67yrs. Father History Unknown: Yes Additional Family Medical History / Comment(s): Father the patient has no contact with him. Sister(s) Family Medical History: Cancer Additional Family Medical History / Comment(s): Has 3 sisters and all have GI problems. One has been diagnosed with diverticulitis. one sister of bone cancer Medications and Allergies Home Medications Medication Instructions Recorded Confirmed Type Lisinopril-Hctz 10-12.5 mg 1 tab PO QAM 10/14/20 03/03/23 History [Zestoretic 10-12.5] Atorvastatin Calcium [Lipitor] 10 mg PO QAM 10/20/20 03/03/23 History Aspirin EC [Ecotrin Low Dose] 81 mg PO HS 02/02/23 03/03/23 History Cholecalciferol [Vitamin D3 (25 50 mcg PO QAM 02/02/23 03/03/23 History Mcg = 1000 Iu)] Allergies Allergy/AdvReac Type Severity Reaction Status Date / Time No Known Allergies Allergy Verified 03/03/23 11:01 Physical Examination - Knee left Appearance: effusion Effusion grade: grade 3 Valgus alignment in stance: 5 degrees Tenderness with palpation: anterior, lateral Pain: throughout ROM Gait: limping ROM: extension: -10 degrees ROM: flexion: 110 degrees Crepitus with motion: Yes Strength: extension: 5/5 Strength: flexion: 5/5 Meniscal tests: lateral meniscal tests: positive, lateral joint line pain: positive Results The patient is a well-developed well-nourished female approximately 5 foot 10, 227 pounds of endomorphic habitus. HEENT exam is nonfocal, neck supple. She has painless passive motion of her left hip. Straight leg raise is negative. She's tender about the medial and lateral joint line of left knee. She has a large effusion. Collaterals are stable, Kia stated, Emmanuel's elicits lateral pain. She has an antalgic gait pattern. Her distal neurovascular appears intact in the left lower extremity. - Diagnostic results Knee MRI: image reviewed (MRI of the left knee shows a complex tear involving the lateral meniscus.) Assessment and Plan Assessment: Left knee internal derangementsymptomatic lateral meniscal tear Plan: I talked to the patient at length regarding her condition along with treatment options. At this point she's quite symptomatic having pain and mechanical symptoms despite conservative measures. After a thorough discussion she opts to proceed with surgery. We will plan to proceed with left knee arthroscopy with probable partial lateral meniscectomy. Risks and benefits were discussed at length in layman's terms. We will likely perform that as an outpatient procedure.
[2024-02-08 10:16] VITALS: BMI 34.0
[~2024-02-09 08:12] MED LIST changes: -LACTATED RINGERS 1,000 ML IV SCH; +MIDAZOLAM 2 MG/2 ML VIAL IV PRN
[2024-02-09] MEDS: IV FLUID CONTINUATION 1,000 ML IV ONE (08:58)
[2024-02-09] MEDS: LACTATED RINGERS 1,000 ML IV SCH (09:01)
[2024-02-09] MEDS: DEXAMETHASONE SOD PHOSPHATE 4 MG/ML 1 ML VIAL IV ONE (09:01)
[2024-02-09] MEDS: ONDANSETRON 4 MG/2 ML VIAL IVP ONE (09:01)
[2024-02-09] MEDS: SCOPOLAMINE 1 MG/72 HR PATCH TRANSDERM ONE (09:01)
[2024-02-09] MEDS ORDERED: MIDAZOLAM 2 MG/2 ML VIAL ONE (09:14)
[2024-02-09] MEDS ORDERED: fentaNYL (PF) 50 MCG/ML 2 ML AMP ONE (09:14)
[2024-02-09] MEDS ORDERED: PROPOFOL 10 MG/ML 20 ML VIAL IV ONE (09:14)
[2024-02-09] MEDS ORDERED: LIDOCAINE 1% INJ 10MG/ML (20 ML MDV) ONE (09:14)
[2024-02-09] MEDS: EPINEPHrine (PF) 1 ML in SODIUM CHLORIDE 0.9% IRRIGATIO 3,000 ML IRRIGATION ONE (09:19)
--- NOTE | 2024-02-09 10:00 | P.OP ---
Date of Procedure: 02/09/24 Preoperative Diagnosis: Left knee lateral meniscal tear Postoperative Diagnosis: Complex anterior/posterior horn lateral meniscal tear left knee, grade 3 chondral injury distal medial portion medial femoral condyle Procedure(s) Performed: Left knee arthroscopic partial lateral meniscectomy/medial femoral chondral ectomy Anesthesia: ERINNA Surgeon: Quintin Painting Estimated Blood Loss (ml): 10 Pathology: none sent Condition: stable Disposition: PACU Indications for Procedure: The patient is a 63-year-old female who presents with progressive left knee pain and mechanical symptoms despite conservative measures. A discussion of the risks and benefits of operative intervention versus continued conservative measures was made with the patient. She opted to proceed with surgery. Operative risks include infection, neurovascular injury, development of blood clots, possible incomplete resolution of symptoms, possible worsening symptoms and need for subsequent procedures was discussed. Informed consent was obtained. Operative Findings: As below Description of Procedure: The patient was brought to the operating room, and after induction of general anesthesia examined the left knee. Collaterals were stable, Kia was ne gative, and posterior drawer was negative. The left lower extremity was prepped and draped in a normal fashion. A superior lateral portal was made through a 3 mm skin incision superior and lateral to the patella. This was used for outflow. A lateral portal was made through a 5 mm vertical skin incision lateral to the patella tendon above the joint line. Diagnostic arthroscopy was performed. On inspection of the medial compartment, a grade 3 chondral injury was noted involving the distal medial portion of the medial femoral condyle measuring 8 x 10 mm. There was a loose chondral flap debrided back to stable base with motorized shaver. The medial meniscus was stable and intact. On inspection of the notch, the anterior cruciate ligament appeared to be intact. On inspection of the lateral compartment, a complex tear involving the anterior horn of the lateral meniscus in the whitered junction was noted. This was debrided back to stable base with a motorized shaver. An oblique tear involving the middle one third of the lateral meniscus in the whitewhite junction was noted. This is debrided back to a stable base with straight baskets and a motorized shaver. Grade 2-3 chondral changes were noted diffusely in the lateral compartment.. On inspection of the patellofemoral articulation, grade 3-4 chondral changes were noted diffusely. The gutters were clear debris. The knee was then thoroughly irrigated. The portals were closed with Steri-Strips. A sterile dressing was applied in addition to a compression stocking. The patient was awoken from general anesthesia and transferred to recovery room in good condition. Blood loss was estimated at 10 mL. No complications were incurred.
[2024-02-09 10:10] VITALS: TEMP 97.2
[2024-02-09] MEDS: HYDROmorphone 0.5 MG/0.5 ML SYRINGE IVP PRN (10:13)
[2024-02-09] MEDS: HYDROcodone/APAP 5-325MG 1 EACH TAB PO STA (11:24)
[2024-02-09 11:45] VITALS: BP 122/80; PULSE 73; RESP 18
[2024-02-09] MEDS: ONDANSETRON ODT 4 MG TAB PO STA (12:29)
== END 2024-02-09 12:38 | disposition home or self-care (01) ==
LOC: OR 08:12
PROVIDERS: ATTEND Orthopaedic Surgery

== ENCOUNTER → 2024-08-02 | Outpatient (CLI) | payer BC ==
--- NOTE | 2024-08-02 15:38 | CTL ---
EXAMINATION TYPE: CT Low Dose Lung DATE OF EXAM ORDERED: 08/02/2024 COMPARISON: CT Low Dose Lung 07/31/2023, 08/05/2021 CLINICAL INDICATION: Female, 64 years old with history of Z12.2 ENCNTR SCREEN FOR MALIGNANT NEOPLASM OF RESP; PHH, F/u lung screening for nicotine dependence of 1ppd x40 years, current smoker., Lung can cer screening, History of Smoking/tobacco use. TECHNIQUE: Low dose computed tomography scan was performed through the chest at 1 mm thick sections a nd reconstructed images in multiple planes at 1 mm and [address] DLP: 165.[address] CTDI: 4.0 mGy Automated exposure control for dose reduction was used. CT DIAGNOSTIC QUALITY: Satisfactory FINDINGS: Nodules: No clinically significant pulmonary nodules. LUNGS: COPD: Severity: None Fibrosis: Severity: None Lymph nodes: None Other findings: None RIGHT PLEURAL SPACE: Effusion: None Calcification: None Thickening: None Pneumothorax: None LEFT PLEURAL SPACE: Effusion: None Calcification: None Thickening: None Pneumothorax: None HEART: Heart Size: Normal Coronary Calcification: Moderate, most pronounced in the LAD. Pericardial Effusion: None OTHER FINDINGS: Upper abdomen: None Bony thorax: Mild multilevel degenerative disc disease. Supraclavicular region: None Other: Ectasia of the ascending thoracic aorta measuring up to 3.9 cm. IMPRESSION: No clinically significant pulmonary nodules. CT LUNG RAD AND CT CHEST RECOMMENDATION: Lung-Rad 1 Negative: Continue annual screening with LDCT in 12 months. S Modifier (other clinically significant findings): None [facility], , 08/02/2024 3:36 PM
== END | disposition home or self-care (01) ==
LOC: RADCTMAIN 14:58
PROVIDERS: ATTEND Internal Medicine Critical Care Medicine
DX: Z12.2 Encounter for screening for malignant neoplasm of respiratory organs (principal); F17.210 Nicotine dependence, cigarettes, uncomplicated
CPT/HCPCS: 71271